=== PATIENT | female | born 2000 | race Caucasian/White ===

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

== ENCOUNTER 2022-03-26 03:13 | Outpatient (CLI) | payer BC, SELFPAY | END 2022-03-26 03:14 | disposition home or self-care (01) | LOC: RT 03:13 | PROVIDERS: PCP Nurse Practitioner Pediatrics; Visit Provider Nurse Practitioner Pediatrics ==

== ENCOUNTER 2022-06-19 11:26 | Outpatient (REF) | payer BC, SELFPAY ==
[2022-06-20 15:16] LABS: Chlamydia Result Negative (Negative); GC Result Negative (Negative)
== END 2022-06-19 11:27 | disposition home or self-care (01) ==
LOC: LBN 11:26
PROVIDERS: PCP Nurse Practitioner Pediatrics; Visit Provider Obstetrics & Gynecology
DX: Z11.3 Encounter for screening for infections with a predominantly sexual mode of transmission (principal)
CPT/HCPCS: 87491; 87591

== ENCOUNTER 2022-09-23 03:27 | Outpatient (CLI) | payer BC, SELFPAY ==
[2022-09-23 16:27] LABS: Abs Immature Grans 0.02 10^3/uL (0.0-0.06); Absolute Basophil Count 0.03 10^3/uL (0.0-0.2); Absolute Eosinophil Count 0.15 10^3/uL (0.0-0.7); Absolute Lymphocyte Count 2.97 10^3/uL (1.2-3.4); Absolute Monocyte Count 0.46 10^3/uL (0.1-0.8); Absolute Neutrophil Count 6.96 10^3/uL (1.2-6.7); Basophils % 0.3; Eosinophils % 1.4; HCT 41.4 % (36.0-46.0); HGB 14.3 g/dL (11.2-15.7); Immature Grans % 0.2; MCHC 34.5 % (32.0-36.0); MCV 93 fL (80-95); MPV 8.1 fL (8.0-11.0); Monocytes % 4.3; Neutrophils % 65.8; Platelet Count 349 10^3/uL (130-400); RBC 4.47 10^6/uL (3.93-5.22); RDW 12.2 % (11.7-14.6); RDW-SD 41.5 fL; WBC 10.59 10^3/uL (4.4-10.8)
[2022-09-23 17:34] LABS: Ferritin 91 ng/mL (8-252)
[2022-09-23 17:44] LABS: Iron 56 ug/dL (50-170); Total Iron Binding Capacity 331 ug/dL (250-450)
== END 2022-09-23 03:28 | disposition home or self-care (01) ==
LOC: LBO 03:27
PROVIDERS: PCP Nurse Practitioner Pediatrics; Visit Provider Student in an Organized Health Care Education/Training Program
DX: G25.81 Restless legs syndrome (principal)
CPT/HCPCS: 36415; 82728; 83540; 83550; 85025

== ENCOUNTER 2023-05-09 18:34 | Outpatient (CLI) | payer BC, SELFPAY ==
[2023-05-09 17:41] LABS: ESR 14 mm/hr (0-20)
[2023-05-09 18:13] LABS: Vitamin D 25 Total 24.9 ng/mL (30-100)
[2023-05-09 18:19] LABS: Calculated LDL 122 mg/dL (<100); Cholesterol 181 mg/dL (<200); HDL Cholesterol 45 mg/dL (40-60); TSH (W/Ref FT4) 2.33 uIU/mL (0.36-3.74); Triglyceride 70 mg/dL (<150); Vitamin B12 723 pg/mL (193-986)
[2023-05-09 18:29] LABS: C-Reactive Protein 0.57 mg/dL (0.0-0.3)
[2023-05-12 09:37] LABS: Cyclic Citrullinated Peptide <2.5 U/mL (<5.0)
[2023-05-12 14:27] LABS: ANA Interpretation Positive (Negative); ANA Titer Pattern 1:80 Speckled
== END 2023-05-09 18:35 | disposition home or self-care (01) ==
LOC: LBO 18:35
PROVIDERS: PCP Nurse Practitioner; Visit Provider Nurse Practitioner
DX: M25.512 Pain in left shoulder (principal); R53.83 Other fatigue; R79.82 Elevated C-reactive protein (CRP); E55.9 Vitamin D deficiency, unspecified; Z13.220 Encounter for screening for lipoid disorders
CPT/HCPCS: 36415; 80061; 82306; 85652; 86200; 82607; 84443; 86038; 86140

== ENCOUNTER 2023-07-08 15:41 | Outpatient (REF) | payer BC, SELFPAY ==
--- NOTE | 2023-07-08 14:00 | PAPFT_PTH ---
PATIENT: Tita Hall LOC: [facility] U#:[id number] AGE/SX: 23/F ROOM: RE07/08/[address]: Kayy Torres DO : 2000 BED: DIS: 07/08/2023 SPEC #: [id number] RECD: 07/08/23 17:25 STATUS: NAZARIO REQ #: [id number] MICHAELA: 07/08/23 14:[address]: Kayy Torres DEPT: [facility] Cytology RECD BY: Jory Caro ENTERED: 07/08/23 17:25 SP TYPE: PAPFT OTHR DR: Jewels Cerna APRN Tissues: 1 - CX/ENDOCX FOR PAP SMEARS Procedures: PAP THIN PREP/[facility] Screening HPV DNA PROBE Comments: [id number] (CHLAMYDIA/GC)
[2023-07-09 15:33] LABS: Chlamydia Result Negative (Negative); GC Result Negative (Negative)
== END 2023-07-08 15:42 | disposition home or self-care (01) ==
LOC: LBN 15:41
PROVIDERS: PCP Nurse Practitioner; Visit Provider Obstetrics & Gynecology
DX: Z12.4 Encounter for screening for malignant neoplasm of cervix (principal); Z11.3 Encounter for screening for infections with a predominantly sexual mode of transmission
CPT/HCPCS: 87491; 87591; 88142; 87624

== ENCOUNTER → 2023-09-03 11:16 | Outpatient (REF) | payer BC, SELFPAY ==
--- NOTE | 2023-09-03 | DI.RAD_ITS ---
Exam(s) XR WRIST LT COMPLETE EXAM: XR WRIST LT COMPLETE CLINICAL HISTORY: pain. TECHNIQUE: 2D digital imaging was performed of the left wrist. Three images were obtained. PA, obl ique and lateral views were obtained. COMPARISON: No exams were available for comparison FINDINGS: BONES: No acute fracture is present. No bony destructive lesion is seen. JOINTS: The carpal bones are normally aligned. SOFT TISSUE: Normal. IMPRESSION: Unremarkable radiographs of the left wrist. DATA REPOSITORY: RADIATION DOSE DELIVERED:
== END ==
LOC: DI 11:16
PROVIDERS: PCP Nurse Practitioner; Visit Provider Nurse Practitioner
DX: M25.532 Pain in left wrist (principal)
CPT/HCPCS: 73110

== ENCOUNTER 2023-09-05 03:16 | Outpatient (CLI) | payer BC, SELFPAY ==
[2023-09-05 16:02] LABS: ESR 18 mm/hr (0-20)
[2023-09-05 16:36] LABS: Albumin 4.2 g/dL (3.4-5.0); C-Reactive Protein 0.82 mg/dL (0.0-0.3); Total Protein 8.8 g/dL (6.4-8.2)
[2023-09-05 16:53] LABS: Vitamin D 25 Total 25.5 ng/mL (30-100)
[2023-09-09 15:32] LABS: ANA Interpretation Positive (Negative); ANA Titer Pattern 1:80 Speckled
== END 2023-09-05 03:17 | disposition home or self-care (01) ==
LOC: LBO 03:16
PROVIDERS: PCP Nurse Practitioner; Visit Provider Nurse Practitioner
DX: E55.9 Vitamin D deficiency, unspecified (principal); R79.82 Elevated C-reactive protein (CRP)
CPT/HCPCS: 36415; 82306; 85652; 82040; 84155; 86038; 86140

== ENCOUNTER → 2023-09-30 02:57 | Outpatient (CLI) | payer BC, SELFPAY ==
--- NOTE | 2023-09-30 | DI.MRI_ITS ---
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 ligament in. TECHNIQUE: Multiplanar multisequence MRI was performed. COMPARISON: None. FINDINGS: BONES: There is no fracture nor bone contusion. No evidence of avascular necrosis. JOINTS: The radiocarpal joint is unremarkable. The carpal joints are unremarkable. Scapholunate dis tance is normal.No evidence of para-articular ganglion. TENDONS: Flexors: There is mild signal abnormality around the flexor or pollicis longus tendon adjacent to the thumb metacarpophalangeal joint but no significant tear. There is some subcutaneous fat edema over this area also evident. Other flexor tendons in the hand and wrist appear unremarkable. Extensors: Unremarkable. No tears or tenosynovitis. Carpal tunnel:Unremarkable MUSCLES: Unremarkable. MEDIAN NERVE: Unremarkable on this noncontrast examination. SOFT TISSUES: Unremarkable. LIGAMENTS: There is mild increased signal in the distal ulnar collateral ligament evident on the [place] fat sat sequence. This is less evidence on the STIR sequence. There is noted joint effusion at this level within the thumb metacarpophalangeal joint and there is no bone edema at this level. T he subjacent sesamoid bones at this level appear unremarkable. TRIANGULAR FIBROCARTILAGE: There is abnormal signal within the triangular fibrocartilage on the media l aspect of the wrist. Cyst some intrasubstance tearing seen adjacent to the ulnar styloid. There i s no prominent fluid in the distal radioulnar joint. OTHER: IMPRESSION: 1. There are mild abnormal soft tissue findings as described above in the region of the metacarpophal angeal joint of the thumb. There is some soft tissue edema around the flexor pollicis tendon at this level but no tear of this tendon. There is also none mild increased signal in the distal aspect of the ulnar collateral ligament but no high-grade tear of this structure and there is no bone bruising or joint effusion at this level. 2. On the opposite-medial aspect of the wrist there appears to be some tearing of the triangular fibr ocartilage adjacent to the ulnar styloid. DATA REPOSITORY:
== END ==
PROVIDERS: PCP Nurse Practitioner; Visit Provider Physician Assistant Medical
DX: M25.231 Flail joint, right wrist (principal)
CPT/HCPCS: 73221

== ENCOUNTER 2024-01-20 06:13 | Day surgery (SDC) | payer OTHER, SELFPAY ==
--- NOTE | 2024-01-19 14:08 | W.PM.DSUDISC ---
Date of service: 01/20/24 Time of Service: 08:41 Discharge Plan Disposition Patient Disposition: Home Condition: Good Discharge Details Reason For Visit: Right inguinal hernia repair Attending Provider: Bhumika Arias Primary Care Provider: Jewels Cerna Home Meds and New Rx's Prescriptions: New tramadol 50 mg tablet 50 mg PO Q4H PRNQty: 14 0RF Continued Nexplanon 68 mg implant 1 implant SBD ONCE Qty: 1 0RF Discharge Instructions Additional Instructions: Dr. Arias HERNIA REPAIR ? POSTOPERATIVE INSTRUCTIONS Patients who have this type of surgery can usually be expected to return to work within two weeks and have minimal amounts of discomfort. ? ACTIVITY: The day of surgery should be spent resting. However, you can be up for short periods of time, I.E., going to the bathroom or kitchen. Avoid lifting or straining. On the day following surgery, you can be up and about as desired. ? LIFTING: Restrict your lifting to no more than five (5) pounds for two weeks after surgery. ??We will decide when you are done with restrictions and when you can return to work, at your follow-up appointment.? No sexual activity for two weeks.? ? DIET: There are no dietary restrictions following surgery. However, you may want to start with small amounts of liquids to avoid nausea the day of surgery. ? INCISION CARE: You will notice purple skin glue closing the incision.? Do not peel this off- it will wear off on its own.? After 24 hours you may shower. The dressing may be replaced for comfort, but is not necessary. ?An ice bag may be applied to the incision for 72 hours following surgery. ? SIGNS OF INFECTION: It is not unusual to have some black and blue discoloration of the skin around the incision. ?It will slowly disappear. If you have any increased redness, drainage, fever (above 100 degrees), please contact your doctor for an examination. ? DISCOMFORT: You may expect to have some mild discomfort at the incision sight. If severe pain develops you should contact your doctor for further instructions. ? URINATION: Patients who have surgery occasionally have problems urinating. If you experience problems and are not able to urinate within 6 hours following your surgery, please call your doctor immediately or go to your nearest Emergency Room for evaluation. ? DRIVING: NO driving for three (3) days after surgery, or if you are still taking narcotic pain medication.? ? MEDICATIONS: Alternate Tylenol 1000mg by mouth every 8 hours and Ibuprofen 600mg every 6 hours. ?Make sure you take ibuprofen with food and not on an empty stomach. ?Take the Tylenol and ibuprofen continuously for the first 72hrs- not just when you have pain.? Use the tramadol for breakthrough pain/pain >7.? Use ICE!?? Twenty minutes on, and then off, continuously for the first 72hours. If you are taking narcotic pain medication, follow the instructions on the label and do not drive. Pain medications can make you very constipated. Make sure you are moving your bowels daily. If not, take Miralax or Milk of Magnesia.?? Anesthesia makes you very constipated.? Take a dose of milk of magnesia the morning after surgery. ? REPORT: Unusual swelling, severe pain, unresolved nausea, signs of infection, or difficulty in urination to your surgeon. Follow up in clinic with Dr. Arias in 2 weeks.? [phone] Activity:: see above Remove Dressings/Wound Care:: 24 hours Shower/Bathe:: 24 hours Diet:: As Tolerated Discharge Orders Discharge Orders: Discharge Order (Routine); Ordered 01/20/24 Ordered By: Bhumika Arias DS: Diagnosis Discharge Diagnosis (1) Right inguinal hernia: Status: Acute Asessment and Plan: The patient is doing well post-op from their [] surgery.? They are having no nausea or vomiting. They are tolerating liquids and a snack. The pt is not having any chest pain or SOB.? Their pain is adequately controlled. They have been able to urinate.? ?HEENT:? no eye pain/drainage/redness/swelling. Mild sore throat ?Cardio- NSR, no chest pain, BP stable- see VS record ?Pulm: no sob or productive cough. No hemoptysis ?Incision- dressing is c/d/i w/ no excessive bleeding or drainage ?I discussed with the patient the findings at the time of surgery and the patient?s progress. ?We reviewed expectations at home; what the patient could expect for recovery time, and in the post-operative period.? We discussed the importance of walking to avoid blood clots and pneumonia.? We discussed and reviewed the patient's post-operative wound care and dressing needs.?? We reviewed their step-nunn pain management plan, Rx called to the pharmacy of their choice.? We reviewed activity and limitations-see discharge instructions. We reviewed warning signs, and when to seek medical attention- see d/c instructions.?? Patient was given a postoperative follow-up appointment. Patient verbalized understanding of their postoperative instructions, how do to take care of themselves and their incision, and the pain management plan. Please see discharge instructions.? (2) BMI (body mass index), pediatric, 95-99% for age: Status: Acute
--- NOTE | 2024-01-19 22:09 | W.PM.OP ---
Date of service: 01/20/24 Time of Service: 08:33 Operative Note Operative Note DATE OF PROCEDURE: 01/20/24 PRE-OP DIAGNOSIS: right inguinal hernia POST-OP DIAGNOSIS: same PROCEDURE: Repair inguinal hernia Female SURGEON: Bhumika Arias AIR ANTISUBMARINE OFFICER: Erin Benjamin ANESTHESIA TYPE: General LMA/ETT Refer to Anesthesia Record ESTIMATED BLOOD LOSS: 5 PATHOLOGY: none sent COMPLICATIONS: None Patient was transported to: same day Patient's condition: stable Procedure Description: INDICATIONS: The pt is here today for surgery regarding symptomatic right inguinal hernia that has failed outpatient conservative medical management, and she is here today for repair. Informed consent was obtained, explaining risks and benefits of the procedure including but not limited to: bleeding, infection, pneumonia, blood clots, chronic pain, chronic numbness, damage to testicle resulting in removal, recurrence of hernia, reaction to Mesh necessitating removal, and other unforetold complications, and complications of anesthesia-which were addressed by the CERTIFIED NUTRITIONIST. The patient is marked in preOp prior to the procedure DESCRIPTION OF PROCEDURE:? The pt is then brought to the operative room suite. Anesthesia was administered per the Department of Anesthesia. Block is performed by a anesthesia. The patient was prepped and draped in the usual sterile fashion using ChloraPrep scrub solution. Pause for the cause was done. SHe did receive preop IV antibiotics, and 30 mL of .25% Marcaine w/ epinephrine was used for local anesthetization. A #12 blade was used to make an incision over the external ring. Electrocautery used to provide hemostasis and dissect down to the fascia. The external Bleich is opened. The The nerve was not identified and destroyed using cautery. Electro-cautery is used to provide hemostasis. cord. There is a medium sized direct hernia sac is pushing through The transversalis . The sac is elevated and scored and inverted. A medium size mesh plug was then placed into the defect and sewn into transversalis, using 2-0 vicryl. ?The patch was then sewn in using 2-0 Vicryl; onto the pubic tubercle, and onto the external oBleich. The wound was copiously irrigated. There was no bleeding noted. ?Deep tissue was approximated with 3-0 Vicryl and skin was approximated with 4-0 Monocryl in a running subcuticular fashion. Skin glue sterile dressings are applied. The patient tolerated the procedure without complications to recovery in stable condition.
[2024-01-20] VITALS (9 sets, daily range): BP systolic 83–117; BP diastolic 33–82; PULSE 71–95; RESP 16–20; TEMP 36.6–37; O2SAT 92–99; BMI 39.9
[2024-01-20] MEDS: Lactated Ringers 1,000 ML 80 ML IV (06:48)
[2024-01-20] MEDS: Acetaminophen 500 MG TAB 1000 MG PO (06:48)
[2024-01-20] MEDS: Gabapentin 300 MG CAP 600 MG PO (06:49)
--- NOTE | 2024-01-20 07:08 | W.ANESPRE ---
General Info Date of Service Date Performed: 01/20/24 Height: 5 ft 3 in Weight: 102.115 kg Body Mass Index (BMI): 39.9 Surgical Procedure: Operation Date: 01/20/24 07:40 Proposed Procedure Side Surgeon p Herniorrhaphy Inguinal w/Mesh Right Bhumika Arias DO Meds Allergies and Home Medications Allergies Allergy/AdvReac Type Severity Reaction Status Date / Time No Known Allergies Allergy Verified 01/20/24 06:39 Home Medication Medication Instructions Recorded etonogestrel 68 mg subdermal 1 implant subdermal ONCE #1 ea 12/04/21 implant (Nexplanon) Current Visit Medications: Current Medications Generic Name Dose Route Start Last Admin Trade Name Freq PRN Reason Stop Dose Admin Acetaminophen 1,000 mg 01/20/24 06:00 01/20/24 06:48 Acetaminophen 500 Mg Tab PO 01/20/24 16:00 1,000 mg PREOP JESSICA Administration Gabapentin 600 mg 01/20/24 06:00 01/20/24 06:49 Gabapentin 300 Mg Cap PO 01/20/24 16:00 600 mg PREOP JESSICA Administration Ringer's Solution 1,000 mls @ 80 mls/hr 01/20/24 06:00 01/20/24 06:48 IV 02/18/24 23:59 80 mls/hr INFUSION JESSICA Administration Cefazolin Sodium/Dextrose 2 gm in 50 mls @ 100 mls/hr 01/20/24 06:00 Ancef Duplex IVPB 01/20/24 16:00 PREOP JESSICA Ondansetron HCl 4 mg/ Sodium 52 mls @ 200 mls/hr 01/20/24 02:06 Chloride IVPB 02/19/24 02:05 Q6H PRN PRN IV Miscellaneous Supplies 1 each 01/20/24 06:00 Iv Access IV 02/18/24 23:59 DIRECTED JESSICA Morphine Sulfate 2 mg 01/20/24 02:06 Morphine 4 Mg/Ml Syr IVP 02/19/24 02:05 Q1H PRN PRN Sodium Chloride 0 ml 01/20/24 06:00 Normal Saline Flush 10 Ml Syr IV 02/18/24 23:59 PRN PRN Sodium Chloride 0 ml 01/20/24 06:00 Normal Saline 10 Ml Vial IJ 02/18/24 23:59 DIRECTED PRN Sterile Water 0 ml 01/20/24 06:00 Water,Injection,Sterile 10 Ml Vial IJ 02/18/24 23:59 DIRECTED PRN Tramadol HCl 50 mg 01/20/24 02:06 Tramadol 50 Mg Tab PO 02/19/24 02:05 Q6H PRN PRN Pain PFSH Active Problems Active Problems: Problem Status Onset Code No-show for appointment Z91.199 Right inguinal hernia K40.90 De Quervain's tenosynovitis M65.4 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 Near syncope R55 Dizziness of unknown cause R42 Irritability R45.4 Nightmares F51.5 Anxiety F41.9 Arthralgia M25.50 Elevated erythrocyte sedimentation rate R70.0 Elevated C-reactive protein R79.82 Attention and concentration deficit R41.840 Constipation K59.00 Cold intolerance R68.89 Weight gain R63.5 Fatigue R53.83 Anxiety and depression F41.9, F32.9 Tendonitis M77.9 Hypermobility syndrome M35.7 S/P tonsillectomy Z90.89 Presence of subdermal contraceptive implant Z97.5 Snoring R06.83 Halitosis R19.6 Throat fullness R68.89 Nasal septal spur J34.89 Tonsil stone J35.8 Hypertrophy tonsils J35.1 Recurrent urinary tract infection 06/15/12 N39.0 Soft tissue abscess L02.91 Dysmenorrhea in adolescent N94.6 Routine child health exam 11/02/14 Z00.129 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 BMI (body mass index), pediatric, 95-99% for age 0211/02/14 Z68.54 Acne 11/02/14 L70.9 Medical History Medical History History of mononucleosis 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 Tobacco Smoking/Tobacco Use Status: Never Passive smoking exposure: Yes Alcohol Alcohol Intake: current Alcohol intake frequency: a few times a month Substance Use Substance use: Never Substance use type: does not use Prental History History 0 Para Hx # Term Pregnancies Multiple births Hx # Pregnancies Ectopic pregnancies AB induced Hx Number of Living Children AB spontaneous Vital Signs and Lab Results Vital Signs Most Recent Vital Signs in EMR: Most Recent Vital Signs Temp Pulse Resp BP Pulse Ox 37.0 C 90 16 117/82 98 01/20/24 06:40 01/20/24 06:40 01/20/24 06:40 01/20/24 06:40 01/20/24 06:40 Point of Care Results Point of Care Results: POC- Test(urine) Negative 01/20/24 06:47 Lab Results Blood Type / Crossmatch: No Data to Display Complete Blood Count: No Data to Display Complete Metabolic Panel: No Data to Display Liver Function Panel: No Data to Display Coagulation Panel: No Data to Display Cardiac Panel: No Data to Display Arterial Blood Gas: No Data to Display Venous Blood Gas: No Data to Display Pancreas Panel: No Data to Display Thyroid Panel: No Data to Display Infectious Disease: No Data to Display Blood Cultures: No Data to Display Toxicology Panel: No Data to Display Panel: No Data to Display Anesthesia Assessment and Plan Anesthesia History Personal History: No History of Anesthesia Complications Family History: No Family History of Anesthesia Complications Exercise Tolerance Exercise Tolerance: Metabolic Equivalents>4 Pertinent Negatives Pertinent Negatives: No Symptoms of GERD, No Major Cardiovascular Symptoms or Complaints, No Major Pulmonary Symptoms or Complaints and No History of CVA/TIA Cardiac & Pulmonary Exam Cardiac Exam: Normal S1/S2 Heart Sounds Pulmonary Exam: Clear Bilateral Breath Sounds Implantable Cardiac Device Does patient have a Pacemaker or an ICD?: No Airway Exam Known Difficult Airway: No Mallampati Class: 2 Mouth Opening: Normal (> 3cm) Thyromental Distance: Less than 3 cm Neck Range of Motion: Full ROM Neck Circumference: Normal Teeth Condition: Normal Dentition ASA Classification ASA Score: ASA 3 Emergency Case?: No NPO Status NPO Status: NPO Clears >2 hours, Solids >8 hours Status Status: Negative HCG Anesthesia Plan Resuscitation Status: Full Code Anesthesia Technique: General Anesthesia Airway Planned: LMA Pain Management: Surgeon and patient request nerve block Monitors Used: Standard Monitors
[2024-01-20] MEDS: ceFAZolin 2 GM/50 ML BAG IVPB (07:39)
--- NOTE | 2024-01-20 08:22 | W.ANESNERVE ---
Nerve Block Single Injection Procedure Date and Time Date Performed: 01/20/24 Procedure Start: 07:48 Location Where Procedure Performed Procedure Location: Operating Room Procedure Stop: 07:54 Reason Performed: Postoperative Analgesia Requesting Provider: Bhumika Arias Timeout Performed Timeout Performed: Yes Monitoring Used ECG, Blood Pressure, SpO2, ETCO2 and See EMR for corresponding vital signs Sterility Sterility: Hand Hygiene, Surgical Cap, Surgical Mask, Sterile Gloves and Chlorhexidine Sedation Given During Procedure Sedation Given (Indicate Dose Given): No Sedation given Patient Mental Status Patient Mental Status: Performed under general anesthesia Nerve Block 1st Nerve Block: Laterality: Right Block Type: TAP Unilateral Ultrasound Image Saved?: Yes Needle / Catheter Used: 100mm SonoPlex II Local Anesthetic Bolus (Indicate Dose Given): Lidocaine used for local infiltration of skin, Injected in 3-5ml increments after negative blood aspiration, Bupivacaine 0.25% Dose:: 10ml and Exparel Dose:: 10ml Additives (Indicate Dose Given): None Ultrasound: Sterile probe cover and gel used Nerve Stimulator: Not Used Paresthesia: None Procedure Tolerated: No Complications and Patient tolerated well Procedure Outcome: Successful Performed By: Geovanni Mitchell
[2024-01-20] MEDS: Bupivacaine 0.25% Pres-Free W/EPI 30 ML VIAL (08:24)
[2024-01-20] MEDS: ePHEDrine 25 MG/5 ML Syringe IVP (09:03)
--- NOTE | 2024-01-20 09:16 | W.ANESPOSTOP ---
Postoperative Evaluation Date, Time and Location Date Performed: 01/20/24 Time Performed: 09:16 Patient Location: PACU Vital Signs Most Recent Imported Vital Signs: Most Recent Vital Signs Temp Pulse Resp BP Pulse Ox 36.6 C 93 H 18 116/61 95 01/20/24 08:58 01/20/24 09:08 01/20/24 09:08 01/20/24 09:08 01/20/24 09:08 Pain Score Most Recent Pain Score: Most Recent Pain Score Pain Level 0 01/20/24 09:08 Assessment Mental Status: Awake (Alert & Oriented to Patient Baseline) Airway and Respiratory Function: Patent airway with normal (patient baseline) respiratory exam Cardiovascular Function: Hemodynamically Stable Hydration Status: Adequately Hydrated Nausea & Vomiting: No Nausea or Vomiting Pain: Pt. Denies Any Pain Peripheral Nerve Block: Regional nerve block not resolved at time of post operative discharge
== END 2024-01-20 10:25 | disposition home or self-care (01) ==
LOC: SUR 06:13
PROVIDERS: PCP Nurse Practitioner; Visit Provider Surgery
PROC: (CPT 49505; principal; 2024-01-20 07:30)
DX: K40.90 Unilateral inguinal hernia, without obstruction or gangrene, not specified as recurrent (principal); Z68.54 Body mass index [BMI] pediatric, 95th percentile for age to less than 120% of the 95th percentile for age
CPT/HCPCS: 49505; 76942; 81025; C1781; C9290; J0131; J0665; J0690; J1100; J1885; J2001; J2250; J2405; J2704

== ENCOUNTER 2024-05-21 17:48 | Emergency (ER) | payer OTHER, SELFPAY ==
[2024-05-21 17:49] VITALS: BP 122/82; PULSE 91; RESP 12; TEMP 36.2; O2SAT 98
--- NOTE | 2024-05-21 17:57 | W.ED.GENAD ---
Discharge Plan Disposition Patient Disposition: Home Condition: Stable Discharge Details Clinical Impression: Right leg pain Primary Care Provider: Jewels Cerna ED Provider: Curt Diaz Home Meds and New Rx's Prescriptions: Continued sertraline 100 mg tablet 100 mg PO DAILY Qty: 90 1RF Nexplanon 68 mg implant 1 implant SBD ONCE Qty: 1 0RF hydroxyzine HCl 10 mg tablet 10 mg PO TID PRN (Reason: anxiety) Qty: 40 0RF Discharge Instructions Instructions: Leg Pain (ED) Additional Instructions: You were seen in the emergency department for your right leg pain, there is no acute swelling or deformity, there is no knee effusion indicating low likelihood of internal knee injury of any severe significance, your blood test that test for blood clot is negative, I suspect that you have a minor muscle strain or sprain, please perform rest, ice, compression on any areas of pain, take Tylenol and ibuprofen as needed for pain, perform gentle stretching exercises. Please return to the emergency department for any unilateral leg swelling especially with skin changes or signs of neurovascular compromise in the distal lower leg. Referrals: Jewels Cerna, PHOTOGRAPHIC SPECIALIST [Primary Care Provider] - Discharge Data Discharge Date/Time-TO BE ENTERED AT DEPARTURE: 05/21/24 19:21 HPI General Date/Time Provider Initiated Documentation: 05/21/24 17:56. HPI Narrative: 24 year-old female presents to ED today by POV/ambulating with a chief complaint of R calf and knee pain, worse when dorsiflexing the foot with onset over the past few days. Quality described as burning type pain, no radiation to unilateral leg swelling, skin changes, numbness, medial thigh tenderness, ulcers. Severity is described as moderate. Palliating factors include elevating her leg. Provoking factors include nothing specific. Events leading up to the incident/Associated Symptoms: Patient worried she tore something as she has connective tissue disease. She also reports having a R inguinal hernia surgical repair back in January of this year. Patient has implanted hormone based control. Patient not anticoagulated. Related Data Home Medications ?Medication ?Instructions ?Recorded ?Confirmed etonogestrel 68 mg subdermal 1 implant subdermal ONCE #1 ea 12/04/21 05/21/24 implant (Nexplanon) hydroxyzine HCl 10 mg tablet 10 mg PO TID PRN anxiety #40 tabs 03/23/24 05/21/24 sertraline 100 mg tablet 100 mg PO DAILY #90 tabs 04/27/24 05/21/24 Previous Rx's ?Medication ?Instructions ?Recorded etonogestrel 68 mg subdermal 1 implant subdermal ONCE #1 ea 12/04/21 implant (Nexplanon) hydroxyzine HCl 10 mg tablet 10 mg PO TID PRN anxiety #40 tabs 03/23/24 sertraline 100 mg tablet 100 mg PO DAILY #90 tabs 04/27/24 Allergies Allergy/AdvReac Type Severity Reaction Status Date / Time No Known Allergies Allergy Verified 05/21/24 17:53 General Stated Complaint: Orthopedic ALEXANDRA: 3 Review of Systems All systems reviewed & are unremarkable except as noted in HPI and below Exam Narrative Exam Narrative: GENERAL APPEARANCE: Well-nourished, non-toxic, awake and alert, atraumatic, no acute distress. SKIN: Warm, pink, dry, intact, without rashes/lesions/ulcerations. HEAD: Normocephalic, atraumatic, normal hair distribution for gender/age. EYES: Normal conjunctiva, no exudates on lids/lashes. ENT: Nares patent, no circumoral cyanosis, no facial swelling NECK: Supple, trachea midline, painless cervical ROM. LUNGS/CHEST: Non-labored respirations, normal A/P diameter, symmetrical expansion, no chest wall deformity HEART (CV/PV): Regular rate, R dorsalis pedis pulse 2+, no peripheral edema, no JVD. ABDOMEN: Soft, non-distended, no guarding. MSK: Normal ROM, no swelling/deformity to bilateral UEs or LEs, moving all extremities without weakness, no cyanosis, spine midline without tenderness, normal curvature. R LE: right leg has no swelling when compared to left, no skin changes, Homans negative, pain is in the musculature of the calf and thighs, no medial thigh tenderness, no skin changes, neurovascular intact to the foot, full range of motion, has right knee joint line tenderness without anterior drawer laxity, Oneil negative NEURO: Mental Status AAOx4 - alert to person, place, time, events No facial droop, no forehead involvement. Motor: No focal weakness - strength 5/5 in bilateral UEs and LEs, proximal and distal, symmetric. Sensory: sensation intact to light touch globally. Gait normal: patient ambulated without ataxia into ED room. PSYCH: euthymic, cooperative, pleasant, appropriate speech Course Vital Signs Vital signs: Vital Signs Temperature 36.2 C L 05/21/24 17:49 Pulse 91 H 05/21/24 17:49 Respiratory Rate 12 05/21/24 17:49 Blood Pressure 122/82 05/21/24 17:49 Pulse Oximetry 98 05/21/24 17:49 Temperature 36.2 C L 05/21/24 17:49 Temperature Source Skin 05/21/24 17:49 Pulse 91 H 05/21/24 17:49 Respiratory Rate 12 05/21/24 17:49 Blood Pressure 122/82 05/21/24 17:49 Blood Pressure Position Sitting 05/21/24 17:49 Pulse Oximetry 98 05/21/24 17:49 Oxygen Delivery Method Room Air 05/21/24 17:49 Oxygen Flow Rate 0 05/21/24 17:49 Pain Level 5 05/21/24 17:49 Medical Decision Making This dictation utilizes [id number] dictation software and may contain unedited grammatical errors. 24 year-old female presents to ED today by POV/ambulating with a chief complaint of R calf and knee pain, worse when dorsiflexing the foot with onset over the past few days. Quality described as burning type pain, no radiation to unilateral leg swelling, skin changes, numbness, medial thigh tenderness, ulcers. Severity is described as moderate. Palliating factors include elevating her leg. Provoking factors include nothing specific. Events leading up to the incident/Associated Symptoms: Patient worried she tore something as she has connective tissue disease. She also reports having a R inguinal hernia surgical repair back in January of this year. Patient has implanted hormone based control. Patients' medical history: Hypermobility syndrome. Family and social history: noncontributory. Pertinent exam findings / vital signs include right leg has no swelling when compared to left, no skin changes, Homans negative, pain is in the musculature of the calf and thighs, no medial thigh tenderness, no skin changes, neurovascular intact to the foot, full range of motion, has right knee joint line tenderness without anterior drawer laxity, Oneil negative. Differential / pathologies of concern include sprain/strain, ligamentous injury, less likely DVT, not cellulitis. Diagnostic studies of: -POC Upreg, D-dimer, XR R knee. -POC urine preg negative -XR R knee negative, no effusion -D-dimer negative Interventions of: -none, recommend conservative treatment. ED Course/Assessment/Plan: [ ]. Findings not consistent with DVT, fracture, internal severe knee injury. Disposition of Right Leg Pain. Patient verbalized understanding of the plan and return to ED criteria and engaged in shared decision making. Medical Records Medical records reviewed: Yes I reviewed the patient's medical records. Imaging Data Radiologic Study: Attestation: I personally reviewed and interpreted this imaging study as follows: Imaging: X-Ray Radiologist's impression: EXAM: XR KNEE RT 3V AP,LAT,BRAULIO CLINICAL HISTORY: R knee pain. TECHNIQUE: 2D digital imaging was performed. COMPARISON: No exams were available for comparison FINDINGS: 3 views No evidence of acute fracture or joint effusion. Bone density normal. No joint space narrowing. No incidental osseous lesions. IMPRESSION: No significant osseous findings in the right knee. No obvious joint effusion evident. Lab Data Lab results reviewed: Yes I reviewed the patient's lab results. Lab results narrative: POC Urine negative Quality:SDOH Health Related Social Needs: No Data to Display PFSH All Active Problems (Updated 05/21/24 @ 19:14 by NARENDRA Sheikh) Right leg pain (Acute) No-show for appointment (Acute) Right inguinal hernia (Acute) De Quervain's tenosynovitis (Acute) Generalized hypermobility of joints (Acute) Odilon Danlos per patient and mother Near syncope (Acute) Dizziness of unknown cause (Acute) Irritability (Acute) Nightmares (Acute) Anxiety (Chronic) Arthralgia (Acute) Elevated erythrocyte sedimentation rate (Acute) Elevated C-reactive protein (Acute) Attention and concentration deficit (Acute) Constipation (Acute) Cold intolerance (Acute) Weight gain (Acute) Fatigue (Acute) Anxiety and depression (Chronic) Tendonitis (Acute) Hypermobility syndrome (Acute) had genetics eval - Odilon Danlos ruled out. dx - hypermobility spectrum disorder S/P tonsillectomy (Acute) Presence of subdermal contraceptive implant (Acute) Snoring (Acute) Halitosis (Acute) Throat fullness (Acute) Nasal septal spur (Acute) Tonsil stone (Acute) Hypertrophy tonsils (Acute) Recurrent urinary tract infection (Acute 06/15/12) Soft tissue abscess (Acute) s/p incision and drainage 12/15/18. 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 Father Hyperlipidemia GERD (gastroesophageal reflux disease) Other Substance abuse Mental disorder depression/anxiety Asthma Grandparent Substance abuse Diabetes MGM Essential hypertension Heart disease Hyperlipidemia GERD (gastroesophageal reflux disease) PGM Irritable bowel syndrome PGM Social History Smoking/Tobacco Use Status: Never Smoking risk assessment performed?: Yes Alcohol Intake: current Alcohol Intake frequency: a few times a month Drug use: Never Substance use type: does not use Housing: house current occupation: student Pets and animals: Yes Pets and animals: cat(s), dog(s), bird(s) and other Details: GEESE Sexually active: Yes Do you think of yourself as: straight/heterosexual Current gender identity: female Do you feel safe at home: Yes Do you feel safe in your relationship?: Yes Additional Social history: UTAP Female Reproductive History Menstrual Age of Menarche: 13 Duration of menses: 3-5 days control method: none, condoms and implanted (nexplanon implanted by Sarah Moss NP JIB=[id number] EXP=) History History 0 Para Hx # Term Pregnancies Multiple births Hx # Pregnancies Ectopic pregnancies AB induced Hx Number of Living Children AB spontaneous
--- NOTE | 2024-05-21 18:37 | DI.RAD_ITS ---
Exam(s) XR KNEE RT 3V AP,LAT,BRAULIO EXAM: XR KNEE RT 3V AP,LAT,BRAULIO CLINICAL HISTORY: R knee pain. TECHNIQUE: 2D digital imaging was performed. COMPARISON: No exams were available for comparison FINDINGS: 3 views No evidence of acute fracture or joint effusion. Bone density normal. No joint space narrowing. No incidental osseous lesions. IMPRESSION: No significant osseous findings in the right knee. No obvious joint effusion evident. DATA REPOSITORY: RADIATION DOSE DELIVERED:
[2024-05-21 19:08] LABS: D-Dimer 304 ng/mlFEU (<500)
[2024-05-21 19:20] VITALS: BP 120/78; PULSE 77; RESP 16; O2SAT 100
== END 2024-05-21 19:21 | disposition home or self-care (01) ==
PROVIDERS: Emergency Provider Physician Assistant; PCP Nurse Practitioner
DX: M79.661 Pain in right lower leg (principal); M25.561 Pain in right knee
CPT/HCPCS: 73562; 81025; 99283; 85379

== ENCOUNTER 2024-11-25 15:24 | Outpatient (REF) | payer OTHER, SELFPAY ==
[2024-11-29 12:27] LABS: Chlamydia Result Negative (Negative); GC Result Negative (Negative)
== END 2024-11-25 15:25 | disposition home or self-care (01) ==
LOC: LBN 15:24
PROVIDERS: PCP Nurse Practitioner; Visit Provider Advanced Practice Midwife
DX: N89.8 Other specified noninflammatory disorders of vagina (principal); R30.0 Dysuria; N39.0 Urinary tract infection, site not specified; N72 Inflammatory disease of cervix uteri
CPT/HCPCS: 87491; 87591; 87480; 87510; 87660

== ENCOUNTER 2025-03-13 18:51 | Emergency (ER) | payer OTHER, SELFPAY ==
[2025-03-13 18:52] VITALS: BP 136/63; PULSE 95; RESP 18; TEMP 37.3; O2SAT 98
--- NOTE | 2025-03-13 19:09 | W.ED.GENAD ---
Discharge Plan Disposition Patient Disposition: Home Condition: Stable Discharge Details Clinical Impression: Dermatitis Primary Care Provider: Jewels Cerna ED Provider: Khushbu Ward Home Meds and New Rx's Prescriptions: New prednisone 20 mg tablet 60 mg PO DAILY 5 Days Qty: 15 0RF No Action multivitamin [Daily Multi-Vitamin] Tablet 1 tab PO DAILY Nexplanon 68 mg implant 1 implant SBD ONCE Qty: 1 0RF hydroxyzine HCl 10 mg tablet 10 mg PO TID PRN (Reason: anxiety) Qty: 40 0RF sertraline 100 mg tablet 100 mg PO DAILY Qty: 90 3RF Discharge Instructions Instructions: Skin Rash ED Additional Instructions: Please continue to use your antifungal cream. Take over the counter Benadryl for itch relief. If you do get worse or develop new and concerning symptoms, please return to the Emergency Department for re-evaluation. HPI General Date/Time Provider Initiated Documentation: 03/13/25 18:52. HPI Narrative: The patient is a 25-year-old female with history of Odilon-Danlos syndrome who comes the emergency department for an itchy rash. The patient reports that a week ago she developed a rash on her left neck which she thought could be ringworm so she has been using [id number] ringworm cream. Reports it has not spread to her chest and is very itchy. Reports that there has been nothing new that she has used including no new foods, no new medications, no new products. She denies history of similar type problems in the past and states that as far she is concerned she has not been around any people with similar rash and has not been around any plants that could cause such a rash. Reports that she does not have it on her back as far she is concerned and she does not think she has it on her legs only on her abdomen, chest and neck. Reports otherwise that she feels well. Denies any tongue, mouth or lip swelling or itchy sensation. Denies any shortness of breath. Denies chest pain. Denies nausea or vomiting. Related Data Home Medications ?Medication ?Instructions ?Recorded ?Confirmed etonogestrel 68 mg subdermal 1 implant subdermal ONCE #1 ea 12/04/21 03/13/25 implant (Nexplanon) hydroxyzine HCl 10 mg tablet 10 mg PO TID PRN anxiety #40 tabs 03/23/24 03/13/25 sertraline 100 mg tablet 100 mg PO DAILY #90 tabs 06/09/24 03/13/25 multivitamin (Daily Multi-Vitamin 1 tab PO DAILY 09/13/24 03/13/25 tablet) prednisone 20 mg tablet 60 mg (3 x 20 mg) PO DAILY 5 days 03/13/25 #15 tabs Previous Rx's ?Medication ?Instructions ?Recorded etonogestrel 68 mg subdermal 1 implant subdermal ONCE #1 ea 12/04/21 implant (Nexplanon) hydroxyzine HCl 10 mg tablet 10 mg PO TID PRN anxiety #40 tabs 03/23/24 sertraline 100 mg tablet 100 mg PO DAILY #90 tabs 06/09/24 prednisone 20 mg tablet 60 mg (3 x 20 mg) PO DAILY 5 days 03/13/25 #15 tabs Allergies Allergy/AdvReac Type Severity Reaction Status Date / Time No Known Allergies Allergy Verified 03/13/25 18:56 General Stated Complaint: RashLesion ALEXANDRA: 4 Review of Systems Narrative: Review of systems are negative except as mentioned. Exam Narrative Exam Narrative: General appearance: The patient is alert, has no immediate need for airway protection and no signs of toxicity. HEENT: Oral mucosal membranes are moist. No tongue or lip swelling noted. Respiratory: There are no retractions. Lungs are clear to auscultation. Cardiovascular: Regular in rate and rhythm. Radial pulses are intact and equal. Gastrointestinal: The abdomen is soft and nondistended with normal bowel sounds. Nontender to palpation throughout. Neurological: The patient is alert, awake and oriented x 3. Skin: On the patient's left anterior lateral neck she has a an ovaln skin lesion with central excoriation. I do not appreciate any central clearing to this and does not appear targetoid. On the upper chest, underneath her breast and on the abdomen she has also multiple semicircular to irregularly shaped maculopapular lesions and some have superficial excoriations but I do not appreciate increased warmth to the touch or erythema to these. She does not have any similar appearing lesions on th extremities. she does not have lesions on her hands. The lesions on her chest have appearance of superficial excoriations. Course Vital Signs Vital signs: Vital Signs Temperature 37.3 C 03/13/25 18:52 Pulse 95 H 03/13/25 18:52 Respiratory Rate 18 03/13/25 18:52 Blood Pressure 136/63 03/13/25 18:52 Pulse Oximetry 98 03/13/25 18:52 Temperature 37.3 C 03/13/25 18:52 Temperature Source Oral 03/13/25 18:52 Pulse 95 H 03/13/25 18:52 Respiratory Rate 18 03/13/25 18:52 Blood Pressure 136/63 03/13/25 18:52 Pulse Oximetry 98 03/13/25 18:52 Oxygen Delivery Method Room Air 03/13/25 18:52 Oxygen Flow Rate 0 03/13/25 18:52 Pain Level 0 03/13/25 18:52 Medical Decision Making Patient reports that she has been really trying to avoid scratching her rash but this states that she can help it and thinks that she may be scratching more at night. I told her for the itch relief it would be beneficial for her to take [id number] Benadryl but because of significant pruritus to this rash I told her I will give her a dose of prednisone and prescription for the next few days. The initial rash on her neck could be thought of as a herald lesion of ringworm I told her to continue using her existing antifungal cream for at least 3 more weeks I told her for now to observe for any worsening symptoms including signs of infection and if this happens return to the emergency department immediately otherwise I encouraged her to follow-up with her primary care doctor and urged her to take the medications as prescribed. PFSH All Active Problems (Updated 03/13/25 @ 19:10 by Khushbu Ward DO) Dermatitis (Acute) Bacterial vaginosis (Acute) Cervicitis (Acute) Vaginal discharge (Acute) Pain of left inguinal ring (Acute) Obesity (BMI 30-39.9) (Acute) No-show for appointment (Acute) Right inguinal hernia (Acute) De Quervain's tenosynovitis (Acute) Generalized hypermobility of joints (Acute) Odilon Danlos per patient and mother Near syncope (Acute) Dizziness of unknown cause (Acute) Irritability (Acute) Nightmares (Acute) Anxiety (Chronic) Arthralgia (Acute) Elevated erythrocyte sedimentation rate (Acute) Elevated C-reactive protein (Acute) Attention and concentration deficit (Acute) Constipation (Acute) Cold intolerance (Acute) Weight gain (Acute) Fatigue (Acute) Anxiety and depression (Chronic) Tendonitis (Acute) Hypermobility syndrome (Acute) had genetics eval - Odilon Danlos ruled out. dx - hypermobility spectrum disorder S/P tonsillectomy (Acute) Presence of subdermal contraceptive implant (Acute 01/18/25) Snoring (Acute) Halitosis (Acute) Throat fullness (Acute) Nasal septal spur (Acute) Tonsil stone (Acute) Hypertrophy tonsils (Acute) Recurrent urinary tract infection (Acute 06/15/12) Soft tissue abscess (Acute) s/p incision and drainage 12/15/18. 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 Father Hyperlipidemia GERD (gastroesophageal reflux disease) Other Substance abuse Mental disorder depression/anxiety Asthma Grandparent Substance abuse Diabetes MGM Essential hypertension Heart disease Hyperlipidemia GERD (gastroesophageal reflux disease) PGM Irritable bowel syndrome PGM Social History (Updated 07/14/24 @ 08:08 by Haley Masters) Smoking/Tobacco Use Status: Never Second Hand Exposure: Yes Smoking risk assessment performed?: Yes Alcohol Intake: current Alcohol Intake frequency: a few times a month Drug use: Never Substance use type: does not use Housing: house current occupation: eye tech at [employer] Pets and animals: Yes Pets and animals: cat(s), dog(s), bird(s) and other Details: GEESE Sexually active: Yes Do you think of yourself as: straight/heterosexual Current gender identity: female What type of physical activity do you participate in: none Seatbelt use: always Helmet use: Yes Do you feel safe at home: Yes Do you feel safe in your relationship?: Yes Additional Social history: UTAP Female Reproductive History Menstrual Age of Menarche: 13 Duration of menses: 3-5 days control method: implanted History History 0 Para Hx # Term Pregnancies Multiple births Hx # Pregnancies Ectopic pregnancies AB induced Hx Number of Living Children AB spontaneous
[2025-03-13] MEDS: predniSONE 20 MG TAB 60 MG PO (19:17)
== END 2025-03-13 19:08 | disposition home or self-care (01) ==
PROVIDERS: Emergency Provider Emergency Medicine; PCP Nurse Practitioner
DX: L30.9 Dermatitis, unspecified (principal)
CPT/HCPCS: 99283; J7512

== ENCOUNTER 2025-04-30 00:23 | Emergency (ER) | payer OTHER, SELFPAY ==
[2025-04-30] VITALS (12 sets, daily range): BP systolic 74–110; BP diastolic 51–66; PULSE 62–100; RESP 20; TEMP 37.6; O2SAT 97–100
[2025-04-30 00:50] LABS: Abs Immature Grans 0.02 10^3/uL (0.0-0.06); HCT 38.0 % (36.0-46.0); HGB 12.9 g/dL (11.2-15.7); Immature Grans % 0.2 %; MCH 31.5 pg (27.0-33.0); MCHC 33.9 % (32.0-36.0); MCV 93 fL (80-95); MPV 8.1 fL (8.0-11.0); Platelet Count 297 10^3/uL (130-400); RBC 4.10 10^6/uL (3.93-5.22); RDW 12.5 % (11.7-14.6); RDW-SD 42.6 fL; WBC 9.34 10^3/uL (4.4-10.8)
[2025-04-30] MEDS: Ondansetron 4 MG/2 ML VIAL IVP (00:51)
[2025-04-30] MEDS: Dicyclomine 10 MG CAP PO (00:51)
[2025-04-30] MEDS: Ketorolac 15 MG/ML VIAL IVP (00:51)
[2025-04-30] MEDS: Sucralfate 1 GM TAB PO (00:51)
[2025-04-30] MEDS: Pantoprazole 40 MG VIAL IVP (00:52)
[2025-04-30] MEDS: MYLANTA 30 ML, LIDOCAINE 2% VISCOUS UD 15 ML PO (00:52)
[2025-04-30 01:05] LABS: ALT 26 U/L (14-59); AST 14 U/L (15-37); Albumin 4.1 g/dL (3.4-5.0); Alkaline Phosphatase 94 U/L (46-116); Anion Gap 9.9 mmol/L (3-11); BUN 11 mg/dL (7-18); Bilirubin, Total 0.3 mg/dL (0.2-1.0); CO2 28.1 mmol/L (21.0-32.0); Calcium 9.4 mg/dL (8.5-10.1); Chloride 103 mmol/L (98-107); Estimated GFR 92.12 (mL/min/1.73m2); Glucose 94 mg/dL (74-106); Lipase 64 U/L (<78); Potassium 3.2 mmol/L (3.5-5.1); Sodium 141 mmol/L (136-145); Total Protein 8.2 g/dL (6.4-8.2)
[2025-04-30] MEDS: Lactated Ringers 1,000 ML 1000 ML IV (01:09)
--- NOTE | 2025-04-30 01:22 | ED.GENADUL_ITS ---
Discharge Plan Disposition Patient Disposition: Home Condition: Good Discharge Details Clinical Impression: Gastric pain Primary Care Provider: Gayle Michel ED Provider: Curt Vo Home Meds and New Rx's Prescriptions: New sucralfate [Carafate] 1 gram tablet 1 g PO BID Qty: 60 0RF pantoprazole [Protonix] 40 mg tablet,delayed release (DR/EC) 40 mg PO DAILY Qty: 60 0RF No Action multivitamin [Daily Multi-Vitamin] Tablet 1 tab PO DAILY Nexplanon 68 mg implant 1 implant SBD ONCE Qty: 1 0RF hydroxyzine HCl 10 mg tablet 10 mg PO TID PRN (Reason: anxiety) Qty: 40 0RF sertraline 100 mg tablet 150 mg PO DAILY Qty: 135 3RF Discharge Instructions Instructions: Gastric Ulcer ED Additional Instructions: At this time your symptoms appear consistent with mild gastric ulcer. Please avoid tomato-based products, citrus based products, or excessive Motrin/ibuprofen. Please stick with a bland diet. Please take the medications as prescribed to help with the healing of your ulcer. These have been sent to your pharmacy. If you notice any worsening of your symptoms, or any new symptoms such as vomiting, diarrhea, fever, chills, shortness of breath, chest pain, numbness, weakness, or fainting , please return immediately to the emergency department for reevaluation. Please follow up with your primary care provider as soon as possible for reassessment and reevaluation. As always, it was a pleasure participating in your medical care today. Referrals: Gayle Michel, SPANISH INTERPRETER/TRANSLATOR [Primary Care Provider, Medicine] [facility] General Date/Time Provider Initiated Documentation: 04/30/25 00:26 . HPI Narrative: This is a 25-year-old female with a past medical history of Odilon-Danlos syndrome,, currently being evaluated for potential autoimmune conditions, who presents today for left upper quadrant pain. She is currently on her menstrual cycle. Pain began around 7 hours ago at about 5 PM. It is sharp in nature and comes and goes in severity. She did eat dinner after the pain began but this did not change her symptoms. She has some nausea but no overnight. No diarrhea. No fever or chills. No right-sided abdominal pain. She denies pain like this in the past. No other complaints at this time. No other modifying factors. She denies hematochezia melena or acholic stool. She denies any urinary discomfort. She denies any dysuria or urinary frequency. Related Data Home Medications ?Medication ?Instructions ?Recorded ?Confirmed etonogestrel 68 mg subdermal 1 implant subdermal ONCE #1 ea 12/04/21 04/28/25 implant (Nexplanon) hydroxyzine HCl 10 mg tablet 10 mg PO TID PRN anxiety #40 tabs 03/23/24 04/28/25 multivitamin (Daily Multi-Vitamin 1 tab PO DAILY 09/1304/28/25 tablet) sertraline 100 mg tablet 150 mg (1.5 x 100 mg) PO TAYLA LY 04/28/25 04/28/25 #135 tabs pantoprazole 40 mg tablet,delayed 40 mg PO DAILY #60 t abs 04/30/25 release (Protonix) sucralfate 1 gram tablet (Carafate) 1 g PO BID #60 tab s 04/30/25 Previous Rx's ?Medication ?Instructions ?Recorded etonogestrel 68 mg subdermal 1 implant subdermal ONCE #1 ea 12/04/21 implant (Nexplanon) hydroxyzine HCl 10 mg tablet 10 mg PO TID PRN anxiety #40 tabs 03/23/24 sertraline 100 mg tablet 150 mg (1.5 x 100 mg) PO TAYLA LY 04/28/25 #135 tabs pantoprazole 40 mg tablet,delayed 40 mg PO DAILY #60 t abs 04/30/25 release (Protonix) sucralfate 1 gram tablet (Carafate) 1 g PO BID #60 tab s 04/30/25 Allergies Allergy/AdvReac Type Severity Reaction Status Date / Time No Known Allergies Allergy Verified 04/28/25 12:57 General Stated Complaint: Abd Prob ALEXANDRA: 3 Exam Narrative Exam Narrative: 1.Const: Well-nourished, Well-developed, appearing stated age 2.Eyes: PERRL, no conjunctival injection, and symmetrical lids. 3.ENT: Atraumatic external nose and ears. Moist MM. Neck: Symmetric, trachea midline, No thyromegaly. 4.CVS: +S1/S2, Peripheral pulses 2+ and equal in all extremities. Brisk capillary refill in all extremities. 5.RESP: Unlabored respiratory effort. Clear to auscultation bilaterally. No wheezes rales or rhonchi 6.GI: Soft, mild pain in the left upper quadrant. No pain at McBurney's point, negative Diane sign. No significant pelvic or left lower quadrant tenderness. No flank or CVA tenderness. Negative heel strike test. 7.MSK: Normocephalic/Atraumatic, Extremities w/o deformity or ttp No cyanosis or clubbing, Normal movement of all extremities 8.Skin: Warm, Dry. No rashes or lesions. 9.Neuro: cook helper juice II-XII grossly intact. Sensation grossly intact, no focal neurologic deficits. 10.Psych: (AAO) x3. Appropriate mood and affect Course Vital Signs Vital signs: Vital Signs Temperature 37.6 C 04/30/25 00:31 Pulse 100 H 04/30/25 00:31 Respiratory Rate 20 04/30/25 00:31 Blood Pressure 96/66 L 04/30/25 00:31 Pulse Oximetry 98 04/30/25 00:31 Temperature 37.6 C 04/30/25 01:10 Pulse 72 04/30/25 01:10 Respiratory Rate 20 04/30/25 01:10 Blood Pressure 96/66 L 04/30/25 01:10 Blood Pressure Mean 77 04/30/25 01:07 Blood Pressure Position Sitting 04/30/25 01:10 Pulse Oximetry 99 04/30/25 01:10 Oxygen Delivery Method Room Air 04/30/25 01:10 Oxygen Flow Rate 0 04/30/25 01:10 Lab/Test Results Lab/Test Results: Laboratory Tests Range/Units 04/30/25 00:44 WBC (4.4-10.8) 10^3/uL 9.34 RBC (3.93-5.22) 10^6/uL 4.10 Hgb (11.2-15.7) g/dL 12.9 Hct (36.0-46.0) % 38.0 MCV (80-95) fL 93 MCH (27.0-33.0) pg 31.5 MCHC (32.0-36.0) % 33.9 RDW (11.7-14.6) % 12.5 Plt Count (130-400) 10^3/uL 297 MPV (8.0-11.0) fL 8.1 Immature Gran % % 0.2 Neutrophils % % 53.0 Lymphocytes % % 36.4 Monocytes % % 7.9 Eosinophils % % 2.1 Basophils % % 0.4 Nucleated RBC % (0.0-0.3) % 0.0 Absolute Neutrophils (1.2-6.7) 10^3/uL 4.94 Absolute Lymphocytes (1.2-3.4) 10^3/uL 3.40 Absolute Monocytes (0.1-0.8) 10^3/uL 0.74 Absolute Eosinophils (0.0-0.7) 10^3/uL 0.20 Absolute Basophils (0.0-0.2) 10^3/uL 0.04 Sodium (136-145) mmol/L 141 Potassium (3.5-5.1) mmol/L 3.2 L Chloride (98-107) mmol/L 103 Carbon Dioxide (21.0-32.0) mmol/L 28.1 Anion Gap (3-11) mmol/L 9.9 BUN (7-18) mg/dL 11 Creatinine (0.55-1.02) mg/dL 0.9 Est GFR (CKD-EPI 2020) (mL/min/1.73m2) 92.12 Glucose (74-106) mg/dL 94 Calcium (8.5-10.1) mg/dL 9.4 Total Bilirubin (0.2-1.0) mg/dL 0.3 AST (15-37) U/L 14 L ALT (14-59) U/L 26 Alkaline Phosphatase (46-116) U/L 94 Total Protein (6.4-8.2) g/dL 8.2 Albumin (3.4-5.0) g/dL 4.1 Lipase (<78) U/L 64 Medical Decision Making This is a 25-year-old female with a past medical history of Odilon-Danlos syndrome,, currently being evaluated for potential autoimmune conditions, who presents today for left upper quadrant pain. She is currently on her menstrual cycle. Pain began around 7 hours ago at about 5 PM. It is sharp in nature and comes and goes in severity. She did eat dinner after the pain began but this did not change her symptoms. She has some nausea but no overnight. No diarrhea. No fever or chills. No right-sided abdominal pain. She denies pain like this in the past. No other complaints at this time. No other modifying factors. She denies hematochezia melena or acholic stool. She denies any urinary discomfort. She denies any dysuria or urinary frequency. Exam demonstrates well-appearing female, vital signs stable, mild left upper quadrant tenderness, no pain or McBurney's point, negative Diane sign. No left lower quadrant or pelvic tenderness. Symptoms showed no evidence of acute surgical abdomen. Differential includes gastritis or gastric ulcer, pancreatitis, less likely UTI or Rock or urolithiasis. Will get laboratory workup, treat with GI cocktail Carafate Protonix, monitor closely rehydrate reassess. 2:14 AM Patient feels much better on reassessment. Abdominal pain notably resolved. Patient feels well and would like to go home. Laboratory workup is returned, no significant white count bandemia or left shift. Electrolytes stable aside from minimally low potassium at 3.2. Urinalysis shows no signs of infection. Symptoms appear consistent with gastric irritation/ulcer. Will give Protonix and Carafate for home use. Patient stable for discharge. Discussed dietary changes. I have extensively reviewed the treatment plan and discharge instructions with the patient and their family. I have addressed all patient concerns at this time. The patient and family was made aware of what symptoms to monitor for that would warrant a return to the emergency department. Discussed the plan with the patient and family, they demonstrate verbal understanding and agreement with our assessment and plan at this time. The documentation in this chart was dictated using Seen dictation software. Please excuse any dictation errors. PFSH All Active Problems (Updated 04/30/25 @ 02:15 by Curt Vo DO) Gastric pain (Acute) Pityriasis rosea (Acute ~03/2025) Bacterial vaginosis (Acute) Cervicitis (Acute) Vaginal discharge (Acute) Pain of left inguinal ring (Acute) Obesity (BMI 30-39.9) (Acute) No-show for appointment (Acute) Right inguinal hernia (Acute) De Quervain's tenosynovitis (Acute) Generalized hypermobility of joints (Acute) Odilon Danlos per patient and mother Near syncope (Acute) Dizziness of unknown cause (Acute) Irritability (Acute) Nightmares (Acute) Anxiety (Chronic) Arthralgia (Acute) Elevated erythrocyte sedimentation rate (Acute) Elevated C-reactive protein (Acute) Attention and concentration deficit (Acute) Constipation (Acute) Cold intolerance (Acute) Weight gain (Acute) Fatigue (Acute) Anxiety and depression (Chronic) Tendonitis (Acute) Hypermobility syndrome (Acute) had genetics eval - Odilon Danlos ruled out. dx - hypermobility spectrum disorder S/P tonsillectomy (Acute) Presence of subdermal contraceptive implant (Acute 01/18/25) Snoring (Acute) Halitosis (Acute) Throat fullness (Acute) Nasal septal spur (Acute) Tonsil stone (Acute) Hypertrophy tonsils (Acute) Recurrent urinary tract infection (Acute 06/15/12) Soft tissue abscess (Acute) s/p incision and drainage 12/15/18. 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 Father Hyperlipidemia GERD (gastroesophageal reflux disease) Other Substance abuse Mental disorder depression/anxiety Asthma Grandparent Substance abuse Diabetes MGM Essential hypertension Heart disease Hyperlipidemia GERD (gastroesophageal reflux disease) PGM Irritable bowel syndrome PGM Social History (Updated 07/14/24 @ 08:08 by Haley Masters) Smoking/Tobacco Use Status: Never Second Hand Exposure: Yes Smoking risk assessment performed?: Yes Alcohol Intake: current Alcohol Intake frequency: a few times a month Drug use: Never Substance use type: does not use Housing: house current occupation: eye tech at [employer] Pets and animals: Yes Pets and animals: cat(s), dog(s), bird(s) and other Details: GEESE Sexually active: Yes Do you think of yourself as: straight/heterosexual Current gender identity: female What type of physical activity do you participate in: none Seatbelt use: always Helmet use: Yes Do you feel safe at home: Yes Do you feel safe in your relationship?: Yes Additional Social history: UTAP Female Reproductive History Menstrual Age of Menarche: 13 Duration of menses: 3-5 days control method: implanted History History 0 Para Hx # Term Pregnancies Multiple births Hx # Pregnancies Ectopic pregnancies AB induced Hx Number of Living Children AB spontaneous
[2025-04-30 01:55] LABS: Glucose Negative (Negative)
[2025-04-30 01:59] LABS: C & S Indicated? No; WBC Negative HPF (0-5)
== END 2025-04-30 02:26 | disposition home or self-care (01) ==
PROVIDERS: Emergency Provider Student in an Organized Health Care Education/Training Program; PCP Nurse Practitioner Adult Health
DX: R10.13 Epigastric pain (principal)
CPT/HCPCS: 99284; 99283; 96374; 96375; 80053; 83690; 96361; 81003; 81015; 85025; J1885; J2405; J2470